=== PATIENT | female | born 1945 | race Caucasian/White ===

== ENCOUNTER → 2017-03-20 | Outpatient (CLI) | payer MEDICARE, OTHER ==
[~2017-03-20] MED LIST: BAYER ASPIRIN325 MG PO; FLEXERIL10 M1 PO
--- NOTE | 2017-03-23 19:02 | RADIOLOGY REPORT PS360 ---
DIG MAMM-SCREEN MARCOS W/CAD CAD Screening ORDERING PHYSICIAN : LATONIA CERDA PATIENT AGE: 71 years GENDER: Female COMPARISON: Previous mammograms: March 2016, September 2015, January 2015. Previous ultrasound right breast September 2015 and February 2015. INDICATION: Routine screening 71-year-old no hormones no new complaints. Family history. Mother breast cancer age 78 TECHNIQUE: Standard CC and MLO images were obtained. R2 CAD reviewed. FINDINGS: Moderate breast density bilaterally with no dominant mass or suspicious calculi RIGHT BREAST: Minimal focal density at the lateral right breast and minimal grouping calcifications lateral breast appears stable as seen on prior from 2015 2014. No significant interval change LEFT BREAST:. Moderate breast density No significant interval change IMPRESSION: No significant interval change. Bilateral follow-up in not over one year recommended. Moderately dense breast decreases to mammography BI-RADS CATEGORY: 2 RECOMMENDED FOLLOWUP: 12M 12 MONTH FOLLOW-UP (A letter has been sent to the patient regarding results of the study.)
== END ==
LOC: RAD 10:30
DX: Z12.31 Encounter for screening mammogram for malignant neoplasm of breast (principal)
CPT/HCPCS: G0202